=== PATIENT | male | born 1955 | race Caucasian/White ===

== ENCOUNTER → 2020-09-29 | Day surgery (SDC) | payer OTHER | END | disposition home or self-care (01) | LOC: ADM 09-22 14:00 → AMB-ENDOS 07:01 | PROVIDERS: ATTEND Colon & Rectal Surgery | DX: K62.89 Other specified diseases of anus and rectum (principal); K64.8 Other hemorrhoids; Z12.11 Encounter for screening for malignant neoplasm of colon ==